=== PATIENT | male | born 1995 | race Caucasian/White ===

== ENCOUNTER 2018-01-11 14:15 | Emergency (ER) | payer BC ==
--- NOTE | 2018-01-11 14:24 | ER Report ---
History and Physical Time Seen By MD: 14:22 HPI/ROS CHIEF COMPLAINT: Dizziness, confusion and visual changes HISTORY OF PRESENT ILLNESS: This is a 22-year-old male who presents to the emergency department for dizziness, confusion and visual changes. Patient states her approximate 6 weeks ago he began to have some visual changes such as diffic ulty focusing, though he denies blurred vision. This continued to progress, then he began to have some dizziness with associated tinnitus, in addition to this he began to have some confusion, short-term memory complaints. He had scheduled an MRI through [facility] for next however today he became nervous when he woke up and was unable to find his homework, states he "just wandered around" looking for it, patient states that he knows that he did his homework last night however is just unable to locate his homework. Patient's grandmother did have brain cancer. Patient is also indicating that he has used LSD most recently roughly 2 weeks ago, he is also used a variety of other illicit drugs. Patient also states that he does have some nausea, no vomiting or diarrhea. Patient does appear anxious during the examination. No fevers or chills. No rashes. No meningismus. REVIEW OF SYSTEMS: Constitutional: No fever, no chills. Eyes: No discharge. ENT: No sore throat. Cardiovascular: No chest pain, no palpitations. Respiratory: No cough, no shortness of breath. Gastrointestinal: No abdominal pain, no vomiting. Genitourinary: No hematuria. Musculoskeletal: No back pain. Skin: No rashes. Neurological: As above. Allergies: Coded Allergies: No Known Drug Allergies (Unverified , 01/11/18) Home Meds No Active Prescriptions or Reported Meds Past Medical/Surgical History The patient has a past medical and surgical history of fainting spells in elementary and middle school, pneumonia as a child, left knee surgery, depression. Reviewed Nurses Notes: Yes Constitutional Vital Sign - Last 24 Hours 01/11/18 01/11/18 01/11/18 01/11/18 14:19 14:20 14:30 14:45 Temp 98.7 Pulse 74 73 88 Resp 16 15 17 B/P (MAP) 138/87 138/87 (104) 126/74 (91) Pulse Ox 97 95 97 O2 Delivery Room Air 11/8/18 01/11/18 01/11/18 01/11/18 15:41 15:45 16:00 16:15 Pulse 85 68 69 Resp 10 13 11 B/P (MAP) 121/69 (86) 116/67 (83) Pulse Ox 93 90 95 01/11/18 01/11/18 01/11/18 01/11/18 16:30 16:45 17:00 17:15 Pulse 61 59 66 66 Resp 18 19 11 15 B/P (MAP) 117/70 (86) 118/66 (83) Pulse Ox 94 96 94 93 01/11/18 01/11/18 01/11/18 17:30 17:45 18:00 Pulse 66 70 Resp 12 20 10 B/P (MAP) 120/79 (93) 128/58 (81) Pulse Ox 94 97 96 Physical Exam General Appearance: The patient is alert, has no immediate need for airway protection and no signs of toxicity. Eyes: Pupils equal and round no pallor or injection. EOMs intact. No nystatin this. ENT, Mouth: Mucous membranes are moist. Respiratory: There are no retractions, lungs are clear to auscultation. Cardiovascular: Regular rate and rhythm, no murmurs, clicks or rubs. Gastrointestinal: Abdomen is soft and non tender, no masses, bowel sounds normal. Neurological: Alert and oriented 4. Moving all extremities. Following all commands. No focal neuro deficits, does have slight decreased sensation in the right lower extremity with palpation. No pronator drift. Is able to hold bilateral lower extremities off the gurney for 5 seconds each. No facial droop. Skin: Warm and dry, no rashes. Musculoskeletal: Neck is supple non tender. Mild submandibular lymphadenopathy. Extremities are nontender, nonswollen and have full range of motion. DIFFERENTIAL DIAGNOSIS: After history and physical exam differential diagnosis was considered for dizziness including but not limited to peripheral and central causes of vertigo, MS, arrhythmia, illicit drug use, orthostatic causes including dehydration, and blood loss. Medical Decision Making Data Points Result Diagram: 01/11/18 1457 01/11/18 1457 Laboratory Hematology Test 01/11/18 14:57 01/11/18 15:02 Red Blood Count 5.77 M/uL (4.00-5.60) Mean Corpuscular Volume 85.9 fL (80.0-96.0) Mean Corpuscular Hemoglobin 30.3 pg (26.0-33.0) Mean Corpuscular Hemoglobin Concent 35.3 g/dL (32.0-36.0) Red Cell Distribution Width 14.1 % (11.5-14.5) Mean Platelet Volume 7.9 fL (7.2-11.1) Neutrophils (%) (Auto) 62.9 % (39.4-72.5) Lymphocytes (%) (Auto) 26.0 % (17.6-49.6) Monocytes (%) (Auto) 9.7 % (4.1-12.4) Eosinophils (%) (Auto) 0.8 % (0.4-6.7) Basophils (%) (Auto) 0.6 % (0.3-1.4) Nucleated RBC Relative Count (auto) 0.1 /100WBC Neutrophils # (Auto) 4.2 K/uL (2.0-7.4) Lymphocytes # (Auto) 1.7 K/uL (1.3-3.6) Monocytes # (Auto) 0.6 K/uL (0.3-1.0) Eosinophils # (Auto) 0.1 K/uL (0.0-0.5) Basophils # (Auto) 0.0 K/uL (0.0-0.1) Nucleated RBC Absolute Count (auto) 0.00 K/uL Erythrocyte Sedimentation Rate < 1 mm/HOUR (0-15) Sodium Level 140 mmol/L (137-145) Potassium Level 4.0 mmol/L (3.5-5.0) Chloride Level 106 mmol/L (98-107) Carbon Dioxide Level 25 mmol/L (22-30) Blood Urea Nitrogen 13 mg/dl (9-21) Creatinine 1.10 mg/dl (0.66-1.25) Glomerular Filtration Rate Calc > 60.0 Random Glucose 95 mg/dl (75-110) Calcium Level 9.4 mg/dl (8.4-10.2) Total Bilirubin 0.6 mg/dl (0.2-1.3) Aspartate Amino Transf (AST/SGOT) 21 U/L (0-35) Alanine Aminotransferase (ALT/SGPT) 22 U/L (0-56) Alkaline Phosphatase 55 U/L (0-126) C-Reactive Protein < 0.5 mg/dl (<1.0) Total Protein 6.9 g/dl (6.3-8.2) Albumin 4.2 g/dl (3.5-5.0) Urine Color Yellow Urine Clarity Clear Urine pH 5.0 pH (4.8-9.5) Urine Specific [place] 1.026 Urine Protein Negative mg/dL (NEGATIVE) Urine Glucose (UA) Negative mg/dL (NEGATIVE) Urine Ketones Negative mg/dL (NEGATIVE) Urine Blood Negative (NEGATIVE) Urine Nitrite Negative (NEGATIVE) Urine Bilirubin Negative (NEGATIVE) Urine Urobilinogen Negative mg/dL (0.2-1.9) Urine Leukocyte Esterase Negative (NEGATIVE) Urine RBC 1 /HPF (0-2/HPF) Urine WBC 1 /HPF (0-5/HPF) Urine Squamous Epithelial Cells Few /LPF (</=FEW) Urine Bacteria Negative /HPF (NONE-FEW) Urine Mucus Few /HPF (NONE-FEW) Urine Opiates Screen Negative Urine Barbiturates Screen Negative Ur Tricyclic Antidepressants Screen Negative Urine Phencyclidine Screen Negative Urine Amphetamines Screen Negative Urine Benzodiazepines Screen Negative Urine Cocaine Screen Negative Urine Cannabinoids Screen Negative Chemistry Test 01/11/18 14:57 01/11/18 15:02 White Blood Count 6.6 k/uL (4.5-11.0) Red Blood Count 5.77 M/uL (4.00-5.60) Hemoglobin 17.5 g/dL (14.0-18.0) Hematocrit 49.6 % (42.0-52.0) Mean Corpuscular Volume 85.9 fL (80.0-96.0) Mean Corpuscular Hemoglobin 30.3 pg (26.0-33.0) Mean Corpuscular Hemoglobin Concent 35.3 g/dL (32.0-36.0) Red Cell Distribution Width 14.1 % (11.5-14.5) Platelet Count 234 K/uL (150-450) Mean Platelet Volume 7.9 fL (7.2-11.1) Neutrophils (%) (Auto) 62.9 % (39.4-72.5) Lymphocytes (%) (Auto) 26.0 % (17.6-49.6) Monocytes (%) (Auto) 9.7 % (4.1-12.4) Eosinophils (%) (Auto) 0.8 % (0.4-6.7) Basophils (%) (Auto) 0.6 % (0.3-1.4) Nucleated RBC Relative Count (auto) 0.1 /100WBC Neutrophils # (Auto) 4.2 K/uL (2.0-7.4) Lymphocytes # (Auto) 1.7 K/uL (1.3-3.6) Monocytes # (Auto) 0.6 K/uL (0.3-1.0) Eosinophils # (Auto) 0.1 K/uL (0.0-0.5) Basophils # (Auto) 0.0 K/uL (0.0-0.1) Nucleated RBC Absolute Count (auto) 0.00 K/uL Erythrocyte Sedimentation Rate < 1 mm/HOUR (0-15) Glomerular Filtration Rate Calc > 60.0 Calcium Level 9.4 mg/dl (8.4-10.2) Total Bilirubin 0.6 mg/dl (0.2-1.3) Aspartate Amino Transf (AST/SGOT) 21 U/L (0-35) Alanine Aminotransferase (ALT/SGPT) 22 U/L (0-56) Alkaline Phosphatase 55 U/L (0-126) C-Reactive Protein < 0.5 mg/dl (<1.0) Total Protein 6.9 g/dl (6.3-8.2) Albumin 4.2 g/dl (3.5-5.0) Urine Color Yellow Urine Clarity Clear Urine pH 5.0 pH (4.8-9.5) Urine Specific [place] 1.026 Urine Protein Negative mg/dL (NEGATIVE) Urine Glucose (UA) Negative mg/dL (NEGATIVE) Urine Ketones Negative mg/dL (NEGATIVE) Urine Blood Negative (NEGATIVE) Urine Nitrite Negative (NEGATIVE) Urine Bilirubin Negative (NEGATIVE) Urine Urobilinogen Negative mg/dL (0.2-1.9) Urine Leukocyte Esterase Negative (NEGATIVE) Urine RBC 1 /HPF (0-2/HPF) Urine WBC 1 /HPF (0-5/HPF) Urine Squamous Epithelial Cells Few /LPF (</=FEW) Urine Bacteria Negative /HPF (NONE-FEW) Urine Mucus Few /HPF (NONE-FEW) Urine Opiates Screen Negative Urine Barbiturates Screen Negative Ur Tricyclic Antidepressants Screen Negative Urine Phencyclidine Screen Negative Urine Amphetamines Screen Negative Urine Benzodiazepines Screen Negative Urine Cocaine Screen Negative Urine Cannabinoids Screen Negative Toxicology Test 01/11/18 15:02 Urine Opiates Screen Negative Urine Barbiturates Screen Negative Ur Tricyclic Antidepressants Screen Negative Urine Phencyclidine Screen Negative Urine Amphetamines Screen Negative Urine Benzodiazepines Screen Negative Urine Cocaine Screen Negative Urine Cannabinoids Screen Negative Urinalysis Test 01/11/18 15:02 Urine Color Yellow Urine Clarity Clear Urine pH 5.0 pH (4.8-9.5) Urine Specific [place] 1.026 Urine Protein Negative mg/dL (NEGATIVE) Urine Glucose (UA) Negative mg/dL (NEGATIVE) Urine Ketones Negative mg/dL (NEGATIVE) Urine Blood Negative (NEGATIVE) Urine Nitrite Negative (NEGATIVE) Urine Bilirubin Negative (NEGATIVE) Urine Urobilinogen Negative mg/dL (0.2-1.9) Urine Leukocyte Esterase Negative (NEGATIVE) Urine RBC 1 /HPF (0-2/HPF) Urine WBC 1 /HPF (0-5/HPF) Urine Squamous Epithelial Cells Few /LPF (</=FEW) Urine Bacteria Negative /HPF (NONE-FEW) Urine Mucus Few /HPF (NONE-FEW) EKG/Imaging EKG Interpretation 12 lead EKG: Time of EKG 1507. Rhythm: Sinus rhythm, ventricular rate 63 bpm. [place]: normal QRS: normal ST segments: No ST depression or elevation identified. Occasional PVC. No previous EKGs for comparison. 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 ED Course/Re-evaluation Clinical Indication for ER IV: Hydration, IV Access ED Course The patient was admitted to room. Attempts were obtained. Differential diagnoses were considered. IV was started. A CBC, CMP were obtained. A 1 L normal saline bolus was given. 4 mg IV Zofran were given. Lab studies unremarkable. Negative UA. Unremarkable tox screen. MRI of the brain was negative for any acute intracranial abnormalities. I did review these results with the patient, I did explain to him that there is no obvious reason for his increased confusion, dizziness and visual changes, therefore I did contact Dr. Ortega, the neurologist on-call at [facility] in [place]. Given the negative MRI, negative lab studies but increased in symptomology Dr. Ortega felt that it would be appropriate to send the patient to [facility] for a more in-depth evaluation, possible EEG. I did speak with Dr. Quintanilla the hospitalist at [facility], she is accepted the patient in the hospitalist services, the patient be transferred over to [facility] via nonemergent ground transport. The patient's is in agreement with this plan of care, the patient did give me permission to speak with his parents, they are agreement with this plan of care as well. The patient had no other questions or concerns at this time. Patient was transferred to [facility]. 01/11/2018 5:00:59 pm I did speak with Dr. Ortega, the neurologist at [facility], after discussion of the case, he suggested transferring the patient over for a formal evaluation. I also spoke with Dr. Quintanilla the hospitalist at [facility], she has accepted the patient into her hospitalist services. Patient will be transferred over by nonemergent EMS. The patient and his family both are in agreement with this plan of care. Decision to Disposition Date: Jan 11, 2018 Decision to Disposition Time: 17:17 Depart Departure Latest Vital Signs Vital Signs Date Time Temp Pulse Resp B/P (MAP) Pulse Ox O2 Delivery O2 Flow Rate FiO2 01/11/18 18:00 10 128/58 (81) 96 01/11/18 17:45 70 01/11/18 14:19 98.7 Room Air Impression: Primary Impression: Confusion Additional Impression: Dizziness Condition: Improved Disposition: XFER TO ACUTE [facility]ARE [facility] ([facility] - [place], [place]) New Scripts No Active Prescriptions or Reported Meds Problem Qualifiers LEOBARDO RAMIREZ IP COUNSEL-BC Jan 11, 2018 14:24
[2018-01-11] MEDS ORDERED: NS(*) 0.9% 1000 ML BAG 1,000 ML IV ONE (14:53)
[2018-01-11] MEDS ORDERED: ONDANSETRON 4 MG/2 ML VIAL IVP ONE (14:55)
[2018-01-11 15:10] LABS: PLATELET COUNT, AUTOMATED 234 K/uL (150-450)
--- NOTE | 2018-01-11 15:37 | EKG ---
FACILITY: [facility] - [place] PATIENT NAME: GHAZAL MALDONADO : [id number] MR: [id number] V: [id number] EXAM DATE: ORDERING PHYSICIAN: LEOBARDO RAMIREZ TECHNOLOGIST: Test Reason : Blood Pressure : / mmHG Vent. Rate : 063 BPM Atrial Rate : 063 BPM P-R Int : 114 ms QRS Dur : 100 ms QT Int : 378 ms P-R-T Axes : 000 087 044 degrees QTc Int : 386 ms Sinus rhythm with occasional premature ventricular complexes Otherwise normal ECG No previous ECGs available Confirmed by EMILY TY ([id number]) on 01/11/2018 7:29:53 PM Referred By: Confirmed By:EMILY TY
--- NOTE | 2018-01-11 16:09 | RADIOLOGY IMAGING REPORT ---
FACILITY: [facility] - [place] PATIENT NAME: Elif Dahl : 1995 MR: [id number] V: [id number] EXAM DATE: ORDERING PHYSICIAN: LEOBARDO RAMIREZ TECHNOLOGIST: Location: [facility] Patient: Elif Dahl : 1995 Visit/Account:[id number] Date of Sevice: 01/11/2018 MRI Brain without IV contrast Indication: Confusion, dizziness and changes in vision for 6 weeks. Comparison: None available Technique: Sagittal T1-weighted, axial FLAIR, T2-weighted T1-weighted, gradient echo, coronal T2-weig hted, axial diffusion weighted and ADC map images were obtained through the brain. IV contrast was n ot administered. Findings: No intracranial bleed, midline shift, mass, mass effect, extra-axial fluid collection or hydrocephalu s. No abnormal signal. Bower/white matter differentiation appears normal. Vascular flow voids appear n ormal. Minimal leftward deviation nasal septum. The left maxillary sinus does show 1 cm cyst/polyp. T he left sphenoid sinus does show 1.5 cm cyst/polyp. The remaining sinuses and mastoids visualized are clear. Bilateral globes are intact. IMPRESSION: 1. Brain shows no acute or focal abnormality. 2. Small cyst/polyp in the left maxillary and sphenoid sinuses. Report Dictated By: Drew Russ at 01/11/2018 3:59 PM Report E-Signed By: Drew Russ at 01/11/2018 4:05 PM WSN:[id number]
[2018-01-11 18:00] VITALS: BP 128/58
== END 2018-01-11 18:10 | disposition short-term general hospital (02) ==
LOC: ER 14:33
DX: R41.0 Disorientation, unspecified (principal); R42 Dizziness and giddiness
CPT/HCPCS: 70551; 80305; 81001; 85025; 85651; 86140; 93005; 96361; 96374; 99285; J2405; J7030; 82040; 82247; 82310; 82374; 82435; 82565; 82947; 84075; 84132; 84155; 84295; 84450; 84460; 84520

== ENCOUNTER → 2018-01-11 | Outpatient (CLI) | payer BC | LOC: AMB 17:58 | PROVIDERS: ATTEND Nurse Practitioner | DX: R41.82 Altered mental status, unspecified (principal) | CPT/HCPCS: A0425; A0426 ==